=== PATIENT | male | born 1990 | race Caucasian/White ===

== ENCOUNTER 2023-07-26 18:23 | Emergency (ER) | payer MEDICARE, MEDICAID ==
[2023-07-26] MEDS ORDERED: Ketorolac Tromethamine 30 MG/ML VIAL ONE (20:14)
== END 2023-07-26 21:00 | disposition home or self-care (01) ==
LOC: CSHERS 18:23
DX: M25.552 Pain in left hip (principal); R51.9 Headache, unspecified; R11.0 Nausea
CPT/HCPCS: 96372; 99283; J1885